=== PATIENT | female | born 2000 | race Caucasian/White ===

== ENCOUNTER 2020-08-24 16:34 | Observation (INO) | payer OTHER, SELFPAY ==
[2020-08-24 16:51] VITALS: BP 133/85; PULSE 74
[2020-08-24 18:00] VITALS: BP 127/61; PULSE 72
--- NOTE | 2020-08-24 18:23 | OBADM ---
This patient, Fina Pepe, admitted to the OB room [facility] for observation. Patient/family oriented to hospital policies and general routines including ID bracelet, bed and alarms, visiting hours, pain management, procedures, bathroom and other care routines, personal items, smoking policy, room service/diet, and visiting hours. Patient/Family are encouraged to report perceived risks to care and to ask questions if they do not understand what they are told or what they should do.
[2020-08-24 18:28] VITALS: BMI 29.1
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
== END 2020-08-24 19:05 | disposition home or self-care (01) ==
PROVIDERS: Admitting Provider Obstetrics & Gynecology; Visit Provider Obstetrics & Gynecology
DX: Z04.1 Encounter for examination and observation following transport accident (principal); V89.2XXA Person injured in unspecified motor-vehicle accident, traffic, initial encounter
CPT/HCPCS: G0378; G0379

== ENCOUNTER 2022-06-08 08:44 | Emergency (ER) | payer OTHER, SELFPAY ==
--- NOTE | ~2022-06-08 | CT_ITS ---
CT Abdomen and Pelvis with contrast. History: Abdominal pain. Spiral CT of the abdomen and pelvis was performed after the administration of intravenous contrast. 1 00 cc of Omnipaque 350 was administered intravenously without complication. Dose reduction technique was used on this scan by utilizing automated exposure control and iterative reconstruction technique. The dose-length product (DLP) was 501.39 mGy-cm. Findings: Scans through the lung bases demonstrate mild atelectatic change. The liver, spleen, pancreas, gallbladder, adrenals and kidneys are within normal limits. No evidence of aortic aneurysm. No lymphadenopathy is seen. There is no evidence of bowel obstruction. There is no evidence to suggest acute appendicitis or dive rticulitis. Images through the pelvis were performed. Urinary bladder unremarkable. No adnexal mass seen. No asci jessica. No ascites is seen. Impression: No significant abnormalities seen. Reviewed, dictated and finalized at [facility]. MEAT CHEF Impression: No significant abnormalities seen.
[2022-06-08 08:46] VITALS: BP 161/96; PULSE 83; RESP 18; TEMP 36.1; O2SAT 100
[2022-06-08 08:59] LABS: Basophils Absolute Auto 0.1 K/mm3 (0.0-0.1); Basophils Percent Auto 0.6 % (0.2-1.2); Eosinophils Absolute Auto 0.1 K/mm3 (0-0.3); Eosinophils Percent Auto 1.5 % (0-4.4); Hematocrit 46.4 % (37.0-47.0); Hemoglobin 15.1 g/dL (12.0-15.0); Immature Granulocyte Absolute 0.02 K/mm3 (0.00-0.031); Immature Granulocyte Percent A 0.2 % (0-0.5); Lymphocytes Absolute Auto 1.91 K/mm3 (0.9-3.2); Lymphocytes Percent Auto 23.2 % (18.3-44.2); Mean Corpuscular HGB Conc 32.5 g/dl (32-36); Mean Corpuscular Hemoglobin 28.9 pg (26-34); Mean Corpuscular Volume 88.9 fl (80-100); Monocytes Absolute Auto 0.3 K/mm3 (0.1-0.6); Monocytes Percent Auto 4.1 % (2.6-8.5); Neutrophils Absolute Auto 5.8 K/mm3 (1.3-6.7); Neutrophils Percent Auto 70.4 % (45.5-73.1); Platelet Count Result 339 k/mm3 (150-375); Red Blood Count 5.22 M/mm3 (4.2-5.4); Red Cell Distribution Width 12.6 % (11.5-14.5); White Blood Count 8.2 K/mm3 (4.5-10.0)
[2022-06-08 09:07] LABS: Appearance Urine Slightly Cloudy (Clear); Bilirubin Urine 1+ (Negative); Blood Urine Trace-intact (Negative); Color Urine Yellow (Yellow); Glucose Urine UA Negative (Negative); Ketones Urine Negative (Negative); Leukocyte Esterase Ur Trace LEU/UL (Negative); Nitrate Urine Negative (Negative); Protein Urine 1+ mg/dL (Negative); Specific Grav Ur >= 1.030 (1.001-1.035); Urobilinogen Urine 0.2 mg/dL (<2.0); pH Urine 5.5 (5.0-9.0)
[2022-06-08 09:10] LABS: Amorphous Sediment Urine Few; Bacteria Urine Trace /hpf; Mucus Urine Heavy /lpf; Squamous Epithelial Cell Urine Many /hpf (Few)
[2022-06-08 09:15] LABS: Alanine Aminotransferase 43 U/L (6-35); Albumin Level 4.7 g/dL (3.5-5.1); Alkaline Phosphatase 116 U/L (38-126); Anion Gap 7 mmol/L (8-16); Aspartate Amino Transferase 29 U/L (14-36); Bilirubin,Total 0.5 mg/dL (0.2-1.3); Blood Urea Nitrogen 11 mg/dL (7-17); Carbon Dioxide 25 mmol/L (22-30); Chloride 103 mmol/L (98-107); Estimated CRCL calculation 113 ml/min; Estimated Glomerular Filt Rate > 60; Glucose 99 mg/dL (65-110); Lipase 41 U/L (23-300); Sodium 135 mmol/L (137-145)
[2022-06-08 09:20] LABS: Add Urine Microscopic? YES
[2022-06-08 10:54] LABS: Pregnancy On Board Control Positive; Urine Pregnancy Test Negative
--- NOTE | 2022-06-08 11:00 | ED.ABDPAIN ---
HPI - Abdominal Pain General Chief Complaint: Abdominal Pain Stated Complaint: abd pain Time Seen by Provider: 06/08/22 10:45 Source: patient Mode of arrival: ambulatory Limitations: no limitations History of Present Illness HPI narrative: This is a 22 year old female that presents to the ER for abdominal pain ongoing over the last 3 days. Reports mid abdominal pain that is burning/squeezing in nature. The pain is constant. She took Ibuprofen with little relief. Reports some associated nausea. Denies fever, vomiting, diarrhea, dysuria or hematuria. Related Data Home Medications Medication Instructions Recorded Confirmed albuterol sulfate 90 mcg/actuation 2 inh inhalation QID PRN Shortness 08/24/20 08/24/20 aerosol inhaler Of Breath Or Wheezing budesonide 90 mcg/actuation breath 1 inh inhalation BID 08/24/20 08/24/20 activated powder inhaler (Pulmicort Flexhaler) cetirizine 10 mg tablet (Zyrtec) 10 mg PO DAILY PRN Allergy Symptoms 08/24/20 08/24/20 Allergies Allergy/AdvReac Type Severity Reaction Status Date / Time banana Allergy Severe throat Verified 06/08/22 10:36 closes shellfish derived Allergy Severe throat Verified 06/08/22 10:36 closes latex Allergy Unknown HIVES Verified 06/08/22 10:36 Review of Systems Review of Systems: CONSTITUTIONAL: Denies fever GASTROINTESTINAL: Reports abdominal pain, nausea. Denies vomiting, or diarrhea. GENITOURINARY: Denies dysuria or hematuria. All systems reviewed & are unremarkable except as noted in HPI and below PMFSH Past Medical History Medical History (Updated 06/08/22 @ 12:19 by Cynthia Lim PA-C) History of asthma History of seasonal allergies Social History Social History (Updated 06/08/22 @ 11:03 by Cynthia Lim PA-C) Smoking status: Never smoker Substance use: never Exam Narrative: GENERAL: Well-appearing, well-nourished, and in no acute distress. HEAD: Normocephalic, atraumatic. EYES: EOMI. CHEST: Clear to auscultation. No respiratory distress. No wheezes rales or rhonchi HEART: Regular rate and rhythm. No murmur heard. Normal peripheral pulses. ABDOMEN: Soft, nondistended, normal active bowel sounds. Mild tenderness to palpation throughout the mid abdomen, without guarding. No CVA tenderness EXTREMITIES: Normal range of motion. No edema. SKIN: Warm, dry, no rash. NEURO: No focal deficits. Alert and oriented x3. PSYCH: Normal mood and affect Course Course Emergency Course: Patient updated on work-up. Reports she feels much better. Agrees with plan of care Vital Signs Vital signs: Vital Signs Temperature 97.0 F L 06/08/22 08:46 Pulse Rate 83 06/08/22 08:46 Respiratory Rate 18 06/08/22 08:46 Blood Pressure 161/96 H 06/08/22 08:46 Pulse Oximetry 100 06/08/22 08:46 Oxygen Delivery Room Air 06/08/22 08:46 Temperature 97.0 F L 06/08/22 08:46 Pulse Rate 83 06/08/22 08:46 Respiratory Rate 18 06/08/22 08:46 Blood Pressure 161/96 H 06/08/22 08:46 Pulse Oximetry 100 06/08/22 08:46 Oxygen Delivery Room Air 06/08/22 08:46 MDM - Abdominal Pain MDM Narrative Medical decision making narrative: Patient presents to the emergency department for mid abdominal pain ongoing over the last 3 days. She is afebrile and nontoxic-appearing. CBC is without leukocytosis. Does show some hemoconcentration. Patient hydrated with IV fluids in the ED. Metabolic panel and lipase without concerning findings. UA with 10-15 white blood cells, but also many squamous epithelial cells. Likely a contaminated catch. Patient does not have any urinary symptoms. This will be sent for a culture. CT scan abdomen pelvis is without acute findings. Patient reports relief with IV Pepcid, Tylenol and Zofran. Updated on work-up and agrees with plan of care. She is to follow-up with her primary provider. She was given warnings to return to the ER Differential Diagnosis Differential diagnosis: Likely abdominal pain
[2022-06-08] MEDS: SODIUM CHLORIDE 0.9% IV 1,000 ML 999 ML IV CONT (11:07)
[2022-06-08] MEDS: FAMOTIDINE 20 MG/2 ML VIAL IV PUSH (11:08)
[2022-06-08] MEDS: ONDANSETRON INJ 4 MG/2 ML VIAL IV PUSH (11:08)
[2022-06-08 12:56] VITALS: BP 143/85; PULSE 80; RESP 16; O2SAT 98
== END 2022-06-08 12:57 | disposition home or self-care (01) ==
PROVIDERS: Emergency Medicine; Emergency Provider Physician Assistant; PCP Nurse Practitioner Family
DX: R10.33 Periumbilical pain (principal); J45.909 Unspecified asthma, uncomplicated
CPT/HCPCS: 36415; 74177; 80053; 81001; 81025; 83690; 85025; 87086; 96361; 96374; 96375; 99284; J0131; J2405; J7030; Q9967